=== PATIENT | female | born 1940 | race Caucasian/White ===

== ENCOUNTER → 2017-01-18 | Outpatient (CLI) | payer MEDICARE ==
[~2017-01-18] MED LIST: ARIC5TAB PO; ATEN50TA PO; GABA100C4 PO; LEVO25TA4 PO; LOSA50TA2 PO; MEDI220T PO; MEMA1CAP2 PO; NAME10TA PO; NAPR220T95 PO; PRAV20TA2 PO; RANI150T PO; SERT-132 PO; SULF500T3 PO
[2017-01-18 13:38] LABS: HEMATOCRIT 34.7 % (35.0-46.0); MEAN CELL VOLUME 94.5 FL (80.0-100.0); MEAN CORPUSCULAR HEMOGLOBIN 32.3 PG (27.0-34.0); MEAN CORPUSCULAR HGB CONC 34.2 % (32.0-36.0); PLATELET COUNT 213 TH/MM3 (150-450); RED BLOOD COUNT 3.68 MIL/MM3 (4.00-5.30); RED CELL DISTRIBUTION WIDTH 11.7 % (11.6-17.2); REVIEW FLAG FINAL; WHITE BLOOD COUNT 7.8 TH/MM3 (4.0-11.0)
--- NOTE | 2017-01-18 15:56 | EKG ---
Date Performed: 01/18/2017 Time Performed: 13:24:16 PTAGE: 76 years EKG: Sinus bradycardia. Possible anteroseptal infarct - age undetermined Abnormal ECG PREVIOUS TRACING : 06/23/2016 02.33 NO SIGNIFICANT CHANGE FROM PRIOR ELECTROCARDIOGRAM. DOCTOR: Brannon Carmona Interpretating Date/Time 01/18/2017 15:55:42
== END ==
LOC: PHPRE 12:17
PROVIDERS: ATTEND Ophthalmology
DX: Z01.810 Encounter for preprocedural cardiovascular examination (principal); Z01.812 Encounter for preprocedural laboratory examination; H25.89 Other age-related cataract; R94.31 Abnormal electrocardiogram [ECG] [EKG]
CPT/HCPCS: 36415; 85027; 93005

== ENCOUNTER → 2017-02-01 | Day surgery (SDC) | payer MEDICARE ==
--- NOTE | 2017-01-19 14:23 | MH ---
Cc: SHRUTHI CARLISLE DATE OF ADMISSION: 02/01/2017 ADMITTING DIAGNOSIS: Cataract right eye. HISTORY OF PRESENT ILLNESS This 76-year-old white female is coming through [facility] for the purpose of a lens extraction of the right eye with intraocular lens implant under local anesthesia. She has noted decreasing visual acuity interfering with her daily activities and elected to have the above procedure. Her best corrected visual acuity is 20/70 in the right eye and 20/50 in the left. PAST MEDICAL HISTORY 1. The patient has a history of Keshawn syndrome 2. Hypertension 3. Alzheimer's 4. Arthritis 5. Hypothyroid 6. Cholesterol problems. PAST SURGICAL HISTORY 1. Includes tubal ligation 1969 2. Benign tumor of the stomach in 1997 3. Broken ankle 2001 4. Breast surgery. 5. Hernia surgery 6. Neck surgery on the disks. 7. The patient has a history of [place] Palsy on the left side. MEDICATIONS Daily medications include 1. Zoloft. 2. Namenda 3. Sulfasalazine 4. Levothyroxine. 5. Pravastatin 6. Aricept 7. Gabapentin 8. Atenolol. 9. Aleve. 10. Vitamin E 11. Super B complex. 12. Vitamin C. 13. Multivitamins. 14. Calcium plus D3 15. Fish oil 16. [place] 3 17. Coconut oil. 18. Ranitidine. 19. Losartan. ALLERGIES The patient has no known allergies. SOCIAL HISTORY: The patient does not smoke, and drinks one to two drinks three or four times a week of alcoholic beverage. FAMILY HISTORY: Family history is positive for father with cataracts and glaucoma sister with pterygium in possibly macular degeneration, the rest is negative. REVIEW OF SYSTEMS: HEAD: Patient denies severe headaches, has dizziness from low blood pressure, no recent head injury. EARS: Patient has hearing loss, ear pain, discharge or ringing in the ears. NOSE: Patient denies nasal discharge, obstruction or frequent colds. MOUTH AND THROAT: Patient denies soreness of the mouth or tongue, bleeding gums, trouble swallowing, changes in voice or sore throat. NECK: Patient denies neck pain or swelling, limitation of neck movement or neck injury. CARDIOPULMONARY SYSTEM: Patient denies shortness of breath, orthopnea, chronic cough, sputum production, hemoptysis, chest pain, wheezing, palpitations or light-headedness. GI SYSTEM: Patient denies poor appetite, nausea, vomiting, abdominal pain, ulcers, hemorrhoids. Has some bowel habit changes due to medication. SYSTEM: The patient denies urinary frequency, dysuria, change in urine color. NERVOUS SYSTEM: Patient denies convulsions, vertigo, stroke, numbness or weakness. PHYSICAL EXAMINATION VITAL SIGNS: Blood pressure 108/58, pulse 64, respirations 20. HEAD, EARS, EYES, NOSE, AND THROAT: Normocephalic, atraumatic. Nose: Without rhinorrhea. Throat clear. NECK: The neck is supple. CHEST: Clear. HEART: Regular rhythm. ABDOMEN: Without tenderness. EXTREMITIES: Without edema. NEUROLOGIC: Within normal limits. MENTAL STATUS: Mental status within normal limits. EYE EXAMINATION The patient's best corrected visual acuity is 20/70 in the right eye 20/50 in the left eye. A potential acuity meter test reveals potential acuity of 28 30 in the right eye and 20 30 +1 in the left. Visual hartley are full to confrontation testing. Extraocular muscle exam reveals full versions with orthophoria at distance and exophoria at near. Pupils are 2.5 mm equal, round, reactive to light without afferent defect. Anterior segment examination reveals a pterygium present in both eyes about half-way from the pupil from the limbus to the pupillary margin in size. There are nuclear sclerotic anterior cortical and posterior subcapsular cataract changes bilaterally. Intraocular pressures 14 in each eye by applanation tonometry. Dilated fundus exam revealed sharp disk with cup-to-disk ratio 0.3 bilaterally. An epiretinal membrane was present greater in the right eye than the left. An occasional drusen was noted in the left macula. A posterior vitreous detachment is present in the left eye. The background right eye was within normal limits. IMPRESSION 1. Bilateral cataracts 2. Epiretinal membrane right eye greater than left. 3. Pterygia both eyes and the Cabrera. PLAN Lens extraction of the right eye with intraocular lens implant under local anesthesia through [facility]. The patient has been cleared medically. She has been counseled as to the risks, benefits and alternatives and elected to proceed. I feel that cataract surgery will improve the quality of life and activities of daily living in this patient. MD NANETTE Medellin/traci /11:34 AM /2:22 PM
[~2017-02-01] VITALS: Ht 157.5 cm; Wt 47.5 kg
[~2017-02-01] MED LIST changes: +ACETYLCHOLINE CHL OPHT SOLN 1:100 2 ML VIAL ONE; -ARIC5TAB PO; +CYCLOPENTOLATE HCL 1% OPHT SOLN 2 ML BTL ONE; +DICLOFENAC SOD 0.1% OPHT SOLN 2.5 ML BTL ONE; +EPINEPHrine HCL (1:1000) 1 MG/ML VIAL ONE; +GATIFLOXACIN 0.5% OPHT SOLN 2.5 ML BTL ONE; +HYALURONIDASE/LIDOCAINE/BUPIVACAINE 4.5 ML SYR ONE; +HYALURONIDASE/LIDOCAINE/BUPIVACAINE 6 ML SYR ONE; +LIDOCAINE HCL 1% PF 30 ML VIAL ONE; -NAME10TA PO; +PHENYLEPHRINE HCL 2.5% OPTH SOLN 2 ML BTL ONE; +PILOCARPINE HCL 2% OPHT SOLN 15 ML BTL ONE; +PROPARACAINE HCL 0.5% OPHT SOLN 15 ML BTL ONE; +PROPOFOL 200 MG/20 ML AMP ONE; +SODIUM CHLORID 0.9% 500 ML INJ 500 ML ONE; +TOBRAMYCIN/DEXAMETHASONE OPTH OINT 3.5 GM TUBE ONE; +TROPICAMIDE 1% OPHT SOLN 15 ML BTL ONE; +VISCOAT OPHT IRRIG SOLN 0.75 ML SYRINGE RIGHT EYE ONE
[2017-02-01 07:20] VITALS: BP 130/76; PULSE 61; RESP 14; TEMP 98.2; O2SAT 98
[2017-02-01 07:34] VITALS: PULSE 61
[2017-02-01 08:15] VITALS: PULSE 54
[2017-02-01 10:02] VITALS: TEMP 98.4
[2017-02-01 10:32] VITALS: BP 124/69; PULSE 60; RESP 14; O2SAT 98
--- NOTE | 2017-02-02 09:38 | MP ---
cc: SHRUTHI DESAI DATE OF SURGERY 02/01/2017 PREOPERATIVE DIAGNOSIS Cataract right eye. POSTOPERATIVE DIAGNOSIS Cataract right eye. OPERATION Extracapsular cataract extraction with posterior chamber intraocular lens implant by phacoemulsification, right eye. SURGEON Shruthi Desai M.D. ANESTHESIA Local COMPLICATIONS None INDICATIONS See history and physical previously dictated. OPERATIVE PROCEDURE The patient had adequate retrobulbar and eyelid blocks administered in the holding area and was brought to the operating room. The right eye was prepped and draped in the usual sterile ophthalmic manner. A lid speculum was inserted in the right eye. A 4-0 silk bridle suture was placed through the conjunctiva near the superior rectus muscle and it was tagged to the drape. A fornix-based conjunctival flap was prepared spanning approximately 5 mm in width. Hemostasis was obtained with wet-field cautery. A 3.5 mm groove was made 1 mm from the limbus and dissected up to the limbus in the form of a scleral pocket incision. A stab incision was then made at the 2 o'clock position. Viscoelastic was injected into the anterior chamber. The anterior chamber was entered with a 2.75 mm keratome through the scleral pocket incision. A 360 degree continuous curvilinear capsulorrhexis was then performed. Hydrodissection was utilized to divide the nucleus into inner and outer components and to separate the cortex from the capsule. Phacoemulsification was then utilized to remove the nucleus. The outer nuclear layer was removed with irrigation and aspiration and short bursts of ultrasound as necessary. The cortex was removed with the irrigation/aspiration handpiece. The posterior capsule was polished with the capsule polisher. Viscoelastic was injected into the capsular bag. The intraocular lens was inspected and found to be in good condition. The lens utilized was a James, model number SA60AT with a power of +20.5 diopters. The lens was inserted into the capsular bag. The viscoelastic in the anterior chamber was then removed with the irrigation-aspiration handpiece. Viscoelastic was also removed from beneath the intraocular lens. The anterior chamber was filled with Miochol-E through the stab incision and pressurized. The wound was checked for leaks at this pressure and normalized pressure and there were none. The 4-0 bridle suture was removed. The conjunctival flap was brought down over the wound and secured with cautery. Pilocarpine 2% eye drops were instilled topically. The lid speculum was removed. TobraDex ophthalmic ointment was applied. The eye was double patched and shielded. The patient tolerated the procedure well and left the Operating Room in satisfactory condition. MD NANETTE Medellin/TAYO /10:08 AM /9:36 AM
== END | disposition home or self-care (01) ==
LOC: PHSDC 06:38
PROVIDERS: ATTEND Ophthalmology
DX: H25.13 Age-related nuclear cataract, bilateral (principal); I10 Essential (primary) hypertension; E03.9 Hypothyroidism, unspecified; G30.9 Alzheimer's disease, unspecified; M02.30 Reiter's disease, unspecified site
CPT/HCPCS: 66984; J0171; J7040; V2632